=== PATIENT | female | born 1965 ===

== ENCOUNTER 2017-09-30 00:21 | Observation (INO) | payer BC ==
[2017-09-30] VITALS (14 sets, daily range): BP systolic 100–120; BP diastolic 68–77
[~2017-09-30] VITALS: Ht 175.3 cm; Wt 94.8 kg
[~2017-09-30 00:21] MED LIST: CALC-1046 PO; CYAN100058; MULT-1335 PO; SERT-173 PO
[2017-09-30] MEDS ORDERED: FAMOTIDINE 20 MG TAB PO ONE (06:00)
[2017-09-30] MEDS ORDERED: LIDOCAINE/SOD BICARB 8.4% SYR ID ONE (06:00)
[2017-09-30] MEDS ORDERED: MIDAZOLAM 2 MG/2 ML VIAL IVP PRN (06:00)
[2017-09-30] MEDS ORDERED: CLINDAMYCIN(*) 900 MG/NS 50 ML 50 ML IVPB ONE (06:00)
[2017-09-30] MEDS ORDERED: NORMOSOL R SOLN(*) 1000 ML BAG 1,000 ML IV PRN (06:00)
[2017-09-30] MEDS ORDERED: NS(*) 0.9% 500 ML BAG 500 ML ONE (06:04)
[2017-09-30] MEDS ORDERED: THROMBIN (BOVINE) 20,000 UNIT VIAL ONE (06:34)
[2017-09-30] MEDS ORDERED: ONDANSETRON 4 MG/2 ML VIAL ONE (06:42)
[2017-09-30] MEDS ORDERED: SUCCINYLCHOL CHL 200MG/10ML VL ONE (06:42)
[2017-09-30] MEDS ORDERED: PROPOFOL EMUL(*) 10MG/ML 20 ML 40 ML ONE (06:42)
[2017-09-30] MEDS ORDERED: DEXAMETHASONE SOD PHOS 10MG/ML ONE (06:42)
[2017-09-30] MEDS ORDERED: PROPOFOL 1000 MG/100 ML ONE (06:51)
[2017-09-30] MEDS ORDERED: NS(*) 0.9% 250 ML BAG 250 ML ONE (06:52)
[2017-09-30] MEDS ORDERED: fentaNYL CITR 250 MCG/5 ML AMP ONE (07:24)
[2017-09-30] MEDS ORDERED: fentaNYL CITR 100 MCG/2 ML AMP ONE ×4 (08:33→10:24)
--- NOTE | 2017-09-30 10:34 | RADIOLOGY IMAGING REPORT ---
FACILITY: [facility] - [place], [place] PATIENT NAME: Rose Cotter : 1965 MR: [id number] V: [id number] EXAM DATE: ORDERING PHYSICIAN: BIENVENIDO JOSHI TECHNOLOGIST: Location: [facility] Patient: Rose Cotter : 1965 Visit/Account:[id number] Date of Sevice: 09/30/2017 CERVICAL SPINE 1 VIEW History: Fluoroscopic guidance during an anterior neck fusion. Comparison study: None. Findings: Intraoperative imaging of the cervical spine was provided during intradiscal cervical fusi on. Completion images show a fusion device in the disc interspaces of C5-6 and C6-7. IMPRESSION: Intraoperative x-rays during cervical fusion. Report Dictated By: Refugio Muro MD at 09/30/2017 10:29 AM Report E-Signed By: Refugio Muro MD at 09/30/2017 10:30 AM WSN:[id number]
[2017-09-30] MEDS ORDERED: diphenhydrAMINE 25 MG CAP PO PRN (11:05)
[2017-09-30] MEDS ORDERED: MAGNESIUM HYDROXIDE* 30ML UDCP PO PRN (11:05)
[2017-09-30] MEDS ORDERED: HYDROmorphone HCL 2 MG/ML SDV IVP PRN (11:05)
[2017-09-30] MEDS ORDERED: LR(*) 1000 ML BAG 1,000 ML IV PRN (11:05)
[2017-09-30] MEDS ORDERED: ONDANSETRON 4 MG/2 ML VIAL IVP PRN (11:05)
[2017-09-30] MEDS ORDERED: ACETAMINOPHEN(*)1000 MG/100 ML 100 ML IVPB PRN (11:05)
[2017-09-30] MEDS ORDERED: ACETAMINOPHEN 500 MG TAB PO PRN (11:05)
[2017-09-30] MEDS ORDERED: DIAZEPAM 5 MG TAB PO PRN (11:05)
[2017-09-30] MEDS ORDERED: BISACODYL 10 MG SUPP PR PRN (11:05)
[2017-09-30] MEDS ORDERED: FLUSH 10 ML SYR IVP PRN (11:05)
--- NOTE | 2017-09-30 13:09 | Hospitalist Progress Note ---
Subjective Progress Notes Subjective Patient seen post-op. Reviewed PMHx (CRIS, depression, obesity s/p bariatric surgery with 95# weight loss) and medications. At present, she only c/o pain in surgical site. Physical Exam Vital Signs Date Time Temp Pulse Resp B/P (MAP) Pulse Ox O2 Delivery O2 Flow Rate FiO2 09/30/17 11:59 94 Nasal Cannula 2.0 09/30/17 11:33 97.8 65 12 117/75 (89) Intake and Output 10/01/17 07:00 Intake Total 1750 ml Output Total 40 ml Balance 1710 ml Intake Oral 50 ml IV Total 1700 ml Output Estimated Blood Loss 40 ml General Appearance: Alert, Awake Neck: Other (cervical collar on) Cardiovascular: Regular Rate and Rhythm Respiratory: Clear to Auscultation Assessment and Plan Problems: (1) CRIS (obstructive sleep apnea) Status: Chronic Assessment & Plan: She has not been using her CPAP for >1 year. She would prefer to not use at this time. She believes her weight loss has improved her sleep significantly. We discussed watching closely and using CPAP if needed. She is in agreement. (2) Depression Status: Chronic Assessment & Plan: Continue Zoloft 100mg daily. (3) Obesity Status: Chronic Assessment & Plan: She has lost ~95# following bariatric surgery. Exam Sepsis Risk: No Definite Risk PALMER JACKSON MD Sep 30, 2017 13:09
[2017-09-30] MEDS: APAP/HYDROCODONE 325/5 TAB PO PRN ×2 (14:35→18:47)
[2017-09-30] MEDS: CLINDAMYCIN(*) 600 MG/NS 50 ML 50 ML IVPB SCH ×2 (15:13→23:12)
[2017-09-30] MEDS: BENZOCAINE/MENTHOL 1 EACH LOZG PO PRN (19:40)
[2017-09-30] MEDS: DOCUSATE SODIUM 100 MG CAP PO SCH (21:28)
--- NOTE | 2017-09-30 23:43 | OPERATIVE REPORT 1 ---
EVENT DATE: September 30, 2017 SURGEON: Karthik Little MD ANESTHESIOLOGIST: Morgan Garcia MD ANESTHESIA: General endotracheal anesthesia. LOCOMOTIVE OILER: ANGIE Rodriguez PREOPERATIVE DIAGNOSIS Cervical radiculopathy and myelopathy. POSTOPERATIVE DIAGNOSIS Cervical radiculopathy and myelopathy. PROCEDURE PERFORMED C5-C6 and C6-C7 anterior cervical discectomy and fusion. INTRAVENOUS FLUIDS 1200 mL ESTIMATED BLOOD LOSS 50 mL IMPLANTS USED Size small, 6 mm, lordotic interbody device from [employer] times two and 3.5 mm x 14 mm screws from [employer] times four, plus a 3 mL package of Vi-Bone. SPECIMENS None. DRAINS A 10-Dutch round Evangelista-Sosa drain through the neck. COMPLICATIONS None. DISPOSITION Post-anesthesia care unit. INDICATIONS FOR SURGERY Ms. Cotter is a 51-year-old female who presented to my clinic with the complaint of radiating arm pain, numbness, and tingling, in addition to some difficulties with fine motor skills and gait disturbance. She had tried physical therapy, injections, medications, and activity modification with no improvement in symptoms. Her physical examination was significant for some right greater than left triceps weakness and a weakly positive Michelle sign bilaterally, as well as some difficulty with tandem gait testing. Her imaging studies showed degenerative disk disease at C5-C6 and C6-C7 with some cord compression, but no cord signal change. There was bilateral severe neural foraminal narrowing at both C5-C6 and C6-C7. Secondary to these findings and ongoing symptoms, we offered, and Ms. Cotter elected to undergo C5-C6 and C6-C7 anterior cervical discectomy and fusion. CONSENT Prior to surgery, I described in detail to the patient the possible risks of and /or pertaining to surgery including bleeding, infection, nerve damage, spinal cord injury, spinal fluid leak, persistent and/or worsening pain, failure of fusion, need for further surgery, , blindness, sexual dysfunction, autonomic nervous system dysfunction, and other unforeseen medical and surgical complications. An understanding that spine surgery is more predictive of improving extremity discomfort than axial spine pain and arresting the progression the spinal cord dysfunction rather than improving it were stressed. Secondary to the anterior approach in the cervical spine, the patient was counseled further as to the risks related to that particular approach; specifically, the risks of the damage to the esophagus, superior or recurrent laryngeal nerve roots, hoarseness, swallowing difficulty, need for tube feeding , etc. DESCRIPTION OF PROCEDURE On the date of surgery, the patient was met in the preoperative hold area, and all questions were answered. Her operative site was identified and marked by myself. She was taken in good condition to the operating room, and after succumbing to anesthesia, she was placed supine on a standard operating table. Her arms were loosely secured at the sides, and her shoulders were gently retracted downward to afford access to the anterior cervical spine. A final timeout was undertaken by members of the operating team to confirm correct patient, correct levels, and correct surgery. An incision was then made over the intended spinal levels, and electrocautery and sharp dissection were carried down to the level of the platysma, which was divided. The medial border of the sternocleidomastoid was carefully identified, and blunt finger dissection was taken medial to the sternocleidomastoid aiming toward the spine and taking care to palpate the carotid sheath and dissect medial to that structure. Space was developed in the retropharyngeal space over the cervical spine, and a retractor was placed. A peanut was used to dissect soft tissues off the anterior aspect of the cervical spine, and an intraoperative radiograph was obtained to confirm correct levels. The soft tissues, including the longus colli anterior to the spine, were elevated off the spine in a subperiosteal manner. Self-retaining retractors were then placed and distracted. We started with the C5-C6 level and utilized a 15 blade to perform an annulotomy of the disk space there. Progressively smaller curettes were utilized to perform a discectomy until we encountered the posterior annulus. At this point, Cloward spreaders were placed to distract the disk space. There was no change in neurophysiologic monitoring. A high-speed bur was used to take down the uncovertebral joints bilaterally as necessary and to take down the posterior osteophytes. A forward-angled curette was then used to carefully dissect through the posterior annulus and the posterior longitudinal ligament. Kerrison punches, 1.0 and 2.0, were then used to take off the posterior osteophytes and to ensure that the bilateral foramina were widely patent. At the conclusion of the decompression, a nerve hook was passed behind the vertebral bodies, and no further compression of the cord was found. The nerve hook was also passed out the foramina, and no persistent compression of the exiting nerve root was noted. The high-speed bur was then used to thoroughly decorticate the endplates of the vertebral body above and below the interspace. A 6 mm high lordotic interbody device was then chosen. This was packed with Vi-Bone and then tamped into place and countersunk a millimeter or so. The awl was then used through the integrated holes within the device to puncture the endplates. Screws 14 mm were then placed and tightened down into the implant. Attention was then turned to the C6-C7 level. A high-speed bur was used to take down the anterior osteophytes and allow for a flush anterior contour to the cervical spine. A discectomy was performed as at the level above, and the PLL was taken down. Again at the conclusion of the discectomy and decompression , a nerve hook was passed behind the vertebral bodies to ensure that there was no persistent compression of the cord and out the foramina bilaterally to ensure no persistent foraminal narrowing. Again, a 6 mm lordotic device was chosen for the C6-C7 level, and this was tamped into as previously. Fixation screws were applied after utilizing the awl to puncture the endplates, and then a radiograph was obtained to confirm appropriate positioning of both interbody devices. The wound was then irrigated with copious sterile saline solution and closed in layers using interrupted sutures for the platysma, inverted interrupted sutures for the subcutaneous tissue, and a then a running subcuticular skin stitch. A drain was left deep to the platysma. Sponge and needle counts were correct times two. POSTOPERATIVE CARE PLAN Ms. Cotter will remain in the hospital overnight, and her drain will be pulled in the morning. She will be discharged home in a collar on postoperative day 1 and will follow up with me in two weeks for a wound check and examination. TONY
[2017-10-01] MEDS: oxyCODONE HCL 5 MG CAP PO PRN ×3 (00:36→08:33)
[2017-10-01 03:52] VITALS: BP 106/68
[2017-10-01] MEDS: BENZOCAINE/MENTHOL 1 EACH LOZG PO PRN (05:13)
[2017-10-01] MEDS: CLINDAMYCIN(*) 600 MG/NS 50 ML 50 ML IVPB SCH (06:42)
[2017-10-01] MEDS: DOCUSATE SODIUM 100 MG CAP PO SCH (08:33)
--- NOTE | 2017-10-01 08:46 | Hospitalist Progress Note ---
Subjective Progress Notes Subjective She reports doing well. No complaints this AM. Physical Exam Vital Signs Date Time Temp Pulse Resp B/P (MAP) Pulse Ox O2 Delivery O2 Flow Rate FiO2 10/01/17 03:52 97.9 64 12 106/68 (81) 93 Nasal Cannula 0.5 Intake and Output 10/02/17 07:00 # Voids 1 General Appearance: Alert, Awake Assessment and Plan Problems: (1) CRIS (obstructive sleep apnea) Status: Chronic Assessment & Plan: She has not been using her CPAP for >1 year. She would prefer to not use at this time. She believes her weight loss has improved her sleep significantly. We discussed having her follow up with her primary care physician in the next month or two to discuss possible further work-up or monitoring. She is in agreement. (2) Depression Status: Chronic Assessment & Plan: Continue Zoloft 100mg daily. (3) Obesity Status: Chronic Assessment & Plan: She has lost ~95# following bariatric surgery. Exam Sepsis Risk: No Definite Risk PALMER JACKSON MD Oct 01, 2017 08:46
[2017-10-01] MEDS ORDERED: SERTRALINE HCL 50 MG TAB PO SCH (09:00)
[2017-10-01] MEDS ORDERED: OXYC-373 PO (09:07)
[2017-10-01] MEDS ORDERED: DOCU240C84 PO (09:07)
[2017-10-01 10:35] VITALS: Ht 175.3 cm; Wt 94.8 kg
== END 2017-10-01 09:00 | disposition home or self-care (01) ==
LOC: OR 00:21 → MED 11:30
PROVIDERS: ADMIT Orthopaedic Surgery; ATTEND Orthopaedic Surgery
DX: M54.12 Radiculopathy, cervical region (principal); G95.9 Disease of spinal cord, unspecified
CPT/HCPCS: 20930; 22551; 22552; 22856; 22858; 63001; 72020; 97161; G0378; J0330; J1100; J1170; J2250; J2405; J2704; J3010; J3490; J7040; J7050